=== PATIENT | female | born 1960 | race Caucasian/White ===

== ENCOUNTER 2016-10-21 09:59 | Emergency (ER) | payer BC ==
[~2016-10-21] VITALS: Ht 160 cm; Wt 115.0 kg
[~2016-10-21 09:59] MED LIST: CHLO.12%30 SSP; CLIN150 PO; DICY1TAB26 PO; PANT20 PO; SUCR1TAB PO
[2016-10-21] MEDS ORDERED: ROBA500T PO (10:09)
--- NOTE | 2016-10-21 10:09 | PD ---
HPI Chief Complaint: Back/ Neck Pain or Injury Time Seen by Provider: 10:07 Travel History International Travel<30 days: No Contact w/Intl Traveler<30days: No Traveled to known affect area: No History of Present Illness HPI 56-year-old female presents to the emergency Department with complaint of left lower sciatic pain 2 days. Has history of sciatica and symptoms are similar. Denies new or recent injury. Says sciatica was exacerbated from sitting in her car to long while held in traffic. Denies encopresis, incontinence, saddle anesthesias. Denies fever, chills, nausea, vomiting. Denies dysuria, urgency, frequency. Denies IV drug use, cancer. Has not taken any medications or tried any treatments to alleviate symptoms. She also is complaining of left great toe pain after stubbing it on a dresser 2 nights ago. Denies decreased range of motion, swelling, deformity of the toe. Pain is aggravated with palpation and ambulation. Allergies to aspirin, Imitrex, NSAIDs, sulfa. Does not have an established primary care provider. No other modifying factors or associated signs and symptoms. PFSH Past Medical History Hx Anticoagulant Therapy: No Cardiovascular Problems: No Chemotherapy: No Cerebrovascular Accident: No Diabetes: No Respiratory: No ?: Not Menopausal: Yes Past Surgical History Cholecystectomy: Yes Hysterectomy: No Neurologic Surgery: Yes (herniated discs neck) Other Surgery: Yes (BRAIN TUMOR SURGICALLY REMOVED) Social History Alcohol Use: Yes ("sometimes") Tobacco Use: Yes Substance Use: No Allergies-Medications (Allergen,Severity, Reaction): Coded Allergies: Aspirin (Verified Allergy, Severe, 10/21/16) Imitrex (Verified Allergy, Severe, 10/21/16) Nonsteroidal Anti-Inflammatory Agts (Verified Allergy, Severe, 10/21/16) Sulfa (Verified Allergy, Severe, 10/21/16) Reported Meds & Prescriptions Reported Meds & Active Scripts Active Robaxin (Methocarbamol) 500 Mg Tab 500 Mg PO QID PRN Review of Systems Except as stated in HPI: all other systems reviewed are Neg Physical Exam Narrative GENERAL: Well-nourished, well-developed female patient, in no acute distress SKIN: Warm and dry. HEAD: Atraumatic. Normocephalic. EYES: Pupils equal and round. No scleral icterus. No injection or drainage. ENT: Mucosa pink and moist. Airway patent. NECK: Trachea midline. CARDIOVASCULAR: Regular rate. RESPIRATORY: No accessory muscle use. GASTROINTESTINAL: Obese. MUSCULOSKELETAL: Left great toe is nonedematous and without erythema or ecchymosis; no obvious deformity; sensory intact and less than 3 second cap refill; with full range of motion; with tenderness on palpation to the proximal phalange. Bilateral lower extremities supple and non-tense with 2+ pedal pulses and sensory intact; with full range of motion and 5/5 strength. Active dorsiflexion and extension of bilateral feet. Right straight leg raise is negative for low back pain. Left straight leg raise is positive for low back pain. Sitting up in bed at 90. No obvious deformities. No clubbing. No cyanosis. No edema. BACK: No midline point tenderness on palpation of the lumbar, thoracic, or cervical spine. Tenderness on palpation of bilateral iliosacral area. No obvious deformities. NEUROLOGICAL: Awake and alert. Oriented 3. No obvious cranial nerve deficits. Motor grossly within normal limits. Normal speech. Moves all extremities. 5/5 strength to all extremities. Sensory intact. PSYCHIATRIC: Appropriate mood and affect; insight and judgment normal. Data Data Orders Orphenadrine Inj (Norflex Inj) (10/21/16 10:15) Shoe Post Op (10/21/16 ) MDM Medical Decision Making Medical Screen Exam Complete: Yes Emergency Medical Condition: Yes Medical Record Reviewed: Yes Differential Diagnosis Toe dislocation, toe sprain, toe fracture, sciatica, acute exacerbation of chronic low back pain Narrative Course 56-year-old female physical exam and history of present illness consistent with left-sided sciatica and left great toe sprain. Left lower tibia supple and non- tense with 2+ pedal pulses sensory intact and without erythema or edema. I offered to x-ray the left foot and the patient declined at this time. Postop shoe applied for support. I offered crutches and the patient declined at this time. NSAIDs and aspirin. Norflex administered in the ER. Robaxin prescribed for home. Patient verbalizes understanding and agreement with treatment plan. Patient is medically cleared and stable for discharge. Discussed reasons to return to the emergency department. Instructed patient to follow up with primary care provider. Patient agrees with treatment plan. The patients vital signs are stable and the patient is stable for outpatient follow-up and treatment. Patient discharged home, stable and in no acute distress. Diagnosis Primary Impression: Left sided sciatica Additional Impression: Sprain of left great toe Qualified Code: S93.502A - Sprain of left great toe, initial encounter Referrals: Primary Care Physician Patient Instructions: General Instructions, Sciatica (ED) Departure Forms: Tests/Procedures, Work Release Enter return to work date: Oct 23, 2016 Additional Instructions: Tylenol or ibuprofen as directed and as needed for pain Robaxin as prescribed and as needed for muscle spasms Heating pad and/or ice to affected area to reduce pain Avoid aggravating activities; increase activity as tolerated Follow-up with primary care provider Return to emergency department immediately with worsening of symptoms Med/Other Pt SpecificInfo: Prescription(s) given Scripts Methocarbamol (Robaxin)500 Mg [id number] Mg PO QID PRN (MUSCLE SPASM) #30 TAB Ref 0 Prov:Doreen Harvey 10/21/16 Disposition: 01 DISCHARGE HOME Condition: Stable Doreen Harvey Oct 21, 2016 10:09
[2016-10-21] MEDS ORDERED: ORPHENADRINE INJ 60 MG/2 ML AMP IM ONE (10:15)
[2016-10-21 10:20] VITALS: BP 134/78; PULSE 87; RESP 15; TEMP 98.2; O2SAT 98
[2016-10-29] MEDS ORDERED: MEDR4PAK PO (11:18)
== END 2016-10-21 11:01 | disposition home or self-care (01) ==
LOC: NEPB 09:59
DX: M54.32 Sciatica, left side (principal); S93.502A Unspecified sprain of left great toe, initial encounter; Z72.0 Tobacco use; W22.03XA Walked into furniture, initial encounter; Y99.8 Other external cause status
CPT/HCPCS: 96372; 99283; J2360; L3260